=== PATIENT | male | born 1965 | race African-American/Black ===

== ENCOUNTER 2018-07-09 13:47 | Emergency (ER) | payer OTHER ==
--- NOTE | 2018-07-09 16:31 | RAD ---
LEFT SHOULDER THREE VIEWS: 07/09/2018 FINDINGS: There is no dislocation. The major acute fracture is not seen; however, there are a few bony flecks near the inferior lip of the glenoid fossa, as well as a small line through the lip of the inferior f ubaldo. This is more likely due to an old injury, such as a dislocation, than a new one. There is dany n a hint of irregularity along the superolateral aspect of the humeral head. Some bony spurring is s een in the AC joint, but there is no widening or offset. The scapula otherwise appears normal, as do the visible adjacent ribs. IMPRESSION: Possible old trauma along the inferior lip of the glenoid fossa. Further imaging, such as MRI, would be needed to assess it better. POS: HOME
== END 2018-07-09 14:28 | disposition home or self-care (01) ==
LOC: BURERS 13:47
DX: S40.012A Contusion of left shoulder, initial encounter (principal); V69.50XA Passenger in heavy transport vehicle injured in collision with unspecified motor vehicles in traffic accident, initial encounter

== ENCOUNTER 2021-09-03 10:50 | Emergency (ER) | payer OTHER, SELFPAY | END 2021-09-03 11:26 | disposition home or self-care (01) | LOC: BURERS 10:50 | DX: L73.9 Follicular disorder, unspecified (principal) | CPT/HCPCS: 99282 ==

== ENCOUNTER 2022-02-15 12:37 | Emergency (ER) | payer SELFPAY | END 2022-02-15 13:01 | disposition home or self-care (01) | LOC: BURERS 12:37 | DX: L73.9 Follicular disorder, unspecified (principal) | CPT/HCPCS: 99282 ==

== ENCOUNTER 2023-03-04 18:46 | Emergency (ER) | payer OTHER, SELFPAY ==
[2023-03-04] MEDS ORDERED: Acetaminophen 500 MG TAB ONE (19:08)
[2023-03-04] MEDS ORDERED: hydrALAZINE 20 MG/ML VIAL ONE (19:08)
[2023-03-04 19:25] LABS: #Basophils 0.1 thou/uL (0.0-0.2); #Eosinphils 0.2 thou/uL (0.0-0.7); #Lymphocytes 2.2 thou/uL (1.20-3.40); #Monocytes 0.4 thou/uL (0.11-0.59); #Neutrophils 3.8 thou/uL (1.40-6.50); %Basophils 1.4 % (0.0-1.0); %Eosinophils 2.3 % (0.0-10.0); %Lymphocytes 33.2 % (21.0-51.0); %Monocytes 5.9 % (0.0-10.0); %Neutrophils 57.2 % (42.0-75.0); Hemoglobin 14.6 g/dL (14.0-18.0); Mean Corpuscular HGB CONC 33.3 g/dL (32.0-36.0); Mean Corpuscular Volume 93.3 fl (78.0-98.0); Mean Platelet Volume 7.2 fL (7.4-10.4); Platelet Count 281 10x3/uL (130-400); RBC Distribution Width 12.4 % (11.5-14.5); Red Blood Cell (RBC) Count 4.72 mill/uL (4.70-6.10); White Blood Cell (WBC) Count 6.7 10x3/uL (4.8-10.8)
[2023-03-04 19:50] LABS: Troponin I 0.011 ng/mL (< 0.028)
[2023-03-04 20:01] LABS: ALT (SGPT) 27 U/L (8-55); AST (SGOT) 26 U/L (5-34); Albumin 4.1 g/dL (3.5-5.0); Alkaline Phosphatase 62 U/L (40-110); Anion Gap 15 mmol/L (10-20); BUN (Urea Nitrogen) 8 mg/dL (8.4-25.7); Bilirubin, Total 0.6 mg/dL (0.2-1.2); Calc. Creatinine Clearance 0 mL/min (70-130); Calcium 9.2 mg/dL (7.8-10.44); Carbon Dioxide 23 mmol/L (22-29); Chloride 102 mmol/L (98-107); Estimated GFR 101; Glucose 97 mg/dL (70-105); Lipase 27 U/L (8-78); Magnesium 1.8 mg/dL (1.6-2.6); Potassium 3.9 mmol/L (3.5-5.1); Protein, Total 7.1 g/dL (6.0-8.3); Sodium 136 mmol/L (136-145)
[2023-03-04] MEDS ORDERED: Ondansetron PF 4 MG/2 ML Vial ONE (20:07)
[2023-03-04] MEDS ORDERED: Morphine 4 MG/ML VIAL ONE (20:08)
== END 2023-03-04 20:35 ==
LOC: BURERS 18:46
DX: I10 Essential (primary) hypertension (principal); R07.89 Other chest pain
CPT/HCPCS: 71045; 80053; 83690; 83735; 83880; 84484; 85025; 93005; 96374; 96375; J0360; J2270; J2405

== ENCOUNTER 2024-01-10 21:46 | Emergency (ER) | payer OTHER, SELFPAY ==
[2024-01-10] MEDS ORDERED: Sulfameth/Trimethoprim DS 800-160mg TAB ONE (22:34)
== END 2024-01-10 23:02 | disposition home or self-care (01) ==
LOC: BURERS 21:46
DX: T22.252A Burn of second degree of left shoulder, initial encounter (principal); S80.862A Insect bite (nonvenomous), left lower leg, initial encounter; J06.9 Acute upper respiratory infection, unspecified; I10 Essential (primary) hypertension; X19.XXXA Contact with other heat and hot substances, initial encounter; Z79.899 Other long term (current) drug therapy
CPT/HCPCS: 99283

== ENCOUNTER 2024-05-06 11:11 | Emergency (ER) | payer OTHER, SELFPAY ==
[2024-05-06] MEDS ORDERED: Ibuprofen 800 MG TAB ONE (11:33)
== END 2024-05-06 11:38 | disposition home or self-care (01) ==
LOC: BURERS 11:11
DX: M43.6 Torticollis (principal)
CPT/HCPCS: 99283